=== PATIENT | female | born 2005 | race Two or more races ===

== ENCOUNTER 2024-10-03 20:03 | Emergency (ER) | payer OTHER ==
[~2024-10-03] VITALS: Ht 160 cm; Wt 112.0 kg
--- NOTE | 2024-10-03 20:32 | ED.PDOC ---
History of Present Illness HPI Comments 19-year-old female comes to ER for chest pains. Patient denies any medical problems. States his last night she has been having dry hacking cough associated with substernal chest pains, tight, 5/10 intensity, worsens with coughing. Noted also to have nausea and generalized body malaise. Chief Complaint: Chest Pain Time Seen by MD: 20:32 Reviewed Notes: Nurses Notes Allergies: Coded Allergies: No Known Drug Allergy (Verified Allergy, Unknown, 10/03/24) Information Source: Patient Mode of Arrival: Ambulatory Severity: Moderate Timing: Hours Duration: Intermittent Prehospital treatment: None Past Medical History PAST MEDICAL HISTORY: Denies Surgical History: Denies all surgeries SHELF STOCKER History: Denies all SHELF STOCKER Hx Family History Family History: Reviewed,noncontributory to illness Social History Smoker: Non-Smoker Alcohol: Denies ETOH Use Drugs: Denies Drug Use Lives In: Home Constitutional: reports: malaise; denies: chills, diaphoresis, fatigue, fever, sweats, weakness, others EENTM: denies: blurred vision, double vision, ear bleeding, ear discharge, ear drainage, ear pain, ear ringing, eye pain, eye redness, hearing loss, mouth pain, mouth swelling, nasal discharge, nose bleeding, nose congestion, nose pain, photophobia, tearing, throat pain, throat swelling, voice changes, others Respiratory: reports: cough; denies: hemoptysis, orthopnea, SOB at rest, shortness of breath, SOB with excertion, stridor, wheezing, others Cardiovascular: reports: chest pain; denies: dizzy spells, diaphoresis, Dyspnea on exertion, edema, irregular heart beat, left arm pain, lightheadedness, pal pitations, PND, syncope, others Gastrointestinal: reports: nausea; denies: abdomen distended, abdominal pain, blood streaked bowels, constipated, diarrhea, dysphagia, difficulty swallowing, hematemesis, melena, poor appetite, poor fluid intake, rectal bleeding, rectal pain, vomiting, others Genitourinary: denies: abnormal vagina bleeding, burning, dyspareunia, dysuria, flank pain, frequency, hematuria, incontinence, pain, , vagina disc harge, urgency, others Neurological: denies: dizziness, fainting, headache, left sided numbness, left sided weakness, numbness, paresthesia, pre-existing deficit, right sided numbness, right sided weakness, seizure, speech problems, tingling, tremors, weakness, others Musculoskeletal: denies: back pain, gout, joint pain, joint swelling, muscle pain, muscle stiffness, neck pain, others Integumetry: denies: bruises, change in color, change in hair/nails, dryness, laceration, lesions, lumps, rash, wounds, others Allergic/Immunocompromised: denies: Difficulty Healing, Frequent Infections, Hives, Itching, others Hematologic/Lymphatic: denies: anemia, blood clots, easy bleeding, easy bruising, swollen glands, others Endocrine: denies: excessive hunger, excessive sweating, excessive thirst, excessive urination, flushing, intolerance to cold, intolerance to heat, unexplained weight gain, unexplained weight loss, others Psychiatric: denies: anxiety, bipolar disorder, depression, hopeless, panic disorder, schizophrenia, sleepless, suicidal, others Physical Exam General Appearance: Mild Distress, Normal HEENT: Normal ENT Inspection, Pharynx Normal, TMs Normal Neck: Full Range of Motion, Non-Tender, Normal, Normal Inspection Respiratory: Chest Non-Tender, Lungs Clear, No Accessory Muscle Use, No Respiratory Distress, Normal Breath Sounds Cardiovascular: No Edema, No JVD, No Murmur, No Gallop, Normal Peripheral Pulses, Regular Rate/Rhythm Breast Exam: Deferred Gastrointestinal: No Organomegaly, Non Tender, No Pulsatile Mass, Normal Bowel Sounds, Soft Genitalia: Deferred Pelvic: Deferred Rectal: Deferred Extremities: No calf tenderness, Normal capillary refill, Normal inspection, Normal range of motion, Non-tender, No pedal edema Musculoskeletal : Apperance: Normal Neurologic: Alert, beauty culturist II-XII nml as Tested, No Motor Deficits, Normal Affect, Normal Mood, No Sensory Deficits Cerebellar Function: Normal Reflexes: Normal Skin: Dry, Normal Color, Warm Lymphatic: No Adenopathy Was a procedure done? Was a procedure done?: No EKG EKG : Pulse Rate (adult): 132 [place]: LAD Cardiac Rhythm: ST Differential Dx Considerations may include: Anemia, electrolyte imbalance,, upper respiratory infection, pneumonia, coronary artery disease, AL, anxiety X-Ray, Labs, Meds, VS Vital Signs Date Time Temp Pulse Resp B/P (MAP) Pulse Ox O2 Delivery O2 Flow Rate FiO2 12/13/24 22:19 98.9 10/03/24 21:24 99.8 128 16 126/85 (99) 98 99.8 10/03/24 21:24 16 98 Room Air* 0 21 10/03/24 21:23 99.8 10/03/24 20:32 132 10/03/24 20:28 99.9 125 22 135/84 (101) 99 10/03/24 20:13 132 Lab Test 10/03/24 21:25 10/03/24 21:05 10/03/24 20:19 10/03/24 00:00 Range/Units Influenza Type A Antigen Positive Negative Influenza Type B Antigen Negative Negative Respiratory Syncytial Virus Antigen Negative Negative SARS-CoV-2 Antigen (Rapid) Negative NEGATIVE Troponin I High Sensitivity < 3 L < 3 L </=34 ng/L White Blood Count 6.3 4.4-10.8 10^3/uL Red Blood Count 4.75 4.0-5.20 10^6/uL Hemoglobin 14.1 12.2-16.2 g/dL Hematocrit 42.1 36.0-46.0 % Mean Corpuscular Volume 88.8 80.0-100.0 fL Mean Corpuscular Hemoglobin 29.7 28.0-32.0 pg Mean Corpuscular Hemoglobin Concent 33.5 32.0-36.0 g/dL Red Cell Distribution Width 13.8 11.8-14.3 % Platelet Count 276 140-450 10^3/uL Mean Platelet Volume 8.2 6.9-10.8 fL Neutrophils (%) (Auto) 59.8 37.0-80.0 % Lymphocytes (%) (Auto) 25.1 10.0-50.0 % Monocytes (%) (Auto) 11.1 0.0-12.0 % Eosinophils (%) (Auto) 3.4 0.0-7.0 % Basophils (%) (Auto) 0.6 0.0-2.0 % Neutrophils # (Auto) 3.8 1.6-8.6 10 ^3/uL Lymphocytes # (Auto) 1.6 0.4-5.4 10 ^3/uL Monocytes # (Auto) 0.7 0-1.3 10 ^3/uL Eosinophils # (Auto) 0.2 0-0.8 10 ^3/uL Basophils # (Auto) 0 0-0.2 10 ^3/uL Nucleated Red Blood Cells 0.1 % Sodium Level 140 136-145 mmol/L Potassium Level 4.1 3.5-5.1 mmol/L Chloride Level 104 98-107 mmol/L Carbon Dioxide Level 28 20-31 mmol/L Anion Gap 8 5-15 Blood Urea Nitrogen 8 L 9-23 mg/dL Creatinine 0.96 0.550-1.02 mg/dL Glomerular Filtration Rate Calc 87 >90 mL/min BUN/Creatinine Ratio 8.3 L 10.0-20.0 Serum Glucose 84 74-106 mg/dL Calcium Level 10.1 8.7-10.4 mg/dL Total Bilirubin 0.2 0.2-1.0 mg/dL Aspartate Amino Transferase (AST) 22 13-40 U/L Alanine Aminotransferase (ALT) 32 7-40 U/L Alkaline Phosphatase 102 46-116 U/L Total Protein 7.7 5.7-8.2 g/dL Albumin 4.4 3.2-4.8 g/dL Urine Color Light-yellow Yellow Urine Clarity Clear Clear Urine pH 6.5 5.0-9.0 Urine Specific [place] 1.012 1.001-1.035 Urine Protein Negative Negative Urine Ketones Negative Negative Urine Blood Trace H Negative /uL Urine Nitrite Negative Negative Urine Bilirubin Negative Negative Urine Urobilinogen Normal Negative mg/dL Urine Leukocyte Esterase Negative Negative /uL Urine RBC 8 0 - 4 /hpf Urine WBC 2 0 - 5 /hpf Urine Squamous Epithelial Cells Few <5 /hpf Urine Bacteria Few H None Seen /hpf Urine Glucose Normal Normal mg/dL Current Medications Medications (Trade) Dose Ordered Sig/Karey Route Start Time Stop Time Status Last Admin Sodium Chloride 1,000 ml @ 1,000 mls/hr Q1H ONCE IV 10/03/24 20:30 10/03/24 21:29 DC 10/03/24 21:20 Ondansetron HCl (Zofran) 4 mg ONCE ONCE IV 10/03/24 20:30 10/03/24 20:31 DC 10/03/24 21:24 Azithromycin 250 ml @ 125 mls/hr ONCE ONCE IV 10/03/24 20:30 10/03/24 22:29 DC 10/03/24 21:15 Acetaminophen (Tylenol Tablet) 650 mg ONCE ONCE PO 10/03/24 20:30 10/03/24 20:31 DC 10/03/24 21:23 Ketorolac Tromethamine (Toradol Injection) 30 mg ONCE ONCE IV 10/03/24 20:30 10/03/24 20:31 DC 10/03/24 21:24 CHEST RADIOGRAPH FINDINGS: Lines and Tubes: None Lungs: Clear Pleura: No effusion. No pneumothorax. Cardiomediastinal contours: Unremarkable Bones: Unremarkable IMPRESSION: No acute disease. Influenza a is positive influenza B and RSV and COVID are negative. Chest troponin is three. Second troponin is three. EKG shows sinus tach. The patient was given azithromycin with Tylenol Toradol and IV fluids. The patient will be discharged to follow up with the primary care physician and prescribed azithromycin. Time of 1ST Reevaluation: 20:29 Reevaluation 1ST: Unchanged Patient Education/Counseling: Diagnosis, Treatment Family Education/Counseling: No Family Present Departure 1 Departure Time of Disposition: 22:36 Impression: Primary Impression: Influenza A Disposition: 01 HOME / SELF CARE / HOMELESS Condition: Stable Additional Instructions: Reassessed patient, vital signs stable. Denies any new symptoms. Patient is able to tolerate PO and ambulate/be mobile at their baseline without concern. Risks and benefits of all medications given or prescribed, if any, discussed. All lab work, imaging and diagnostic studies were reviewed by me. The patient was counseled extensively on my clinical impression, diagnosis, expected course of the disease, and plan, including their follow-up care. Will discharge patient. Patient instructed to follow up with Primary Care Physician within 24-48 hours. Strict return precautions given for further exacerbation of symptoms or for new symptoms. The patient was given the opportunity to ask questions and all questions were answered by myself and the nursing/tech staff. Patient is in agreement with the care plan. The patient verbally expressed understanding of the discharge instructions, including the reasons to return to the Emergency Department. e-Prescriptions Azithromycin (Zithromax Z-Rodger) 250 Mg Tab 250 MG PO DAILY for 4 Days, #4 TAB Prov: COREY RAMSEY MD 10/03/24 Discharged With: Self Critical Care Note Critical Care Time?: No Stability Stability form required: No Heart Score Heart Score: Heart Score Response (Comments) Value History N/A 0 EKG N/A 0 Age N/A 0 Risk Factors N/A 0 Troponin N/A 0 Total 0 I personally scribed for COREY RAMSEY MD ([email or web address]) on 10/03/24 at 20:32. Electronically submitted by Manan Whitfield ([email or web address]). I personally scribed for COREY RAMSEY MD ([email or web address]) on 10/03/24 at 21:08. Electronically submitted by Manan Whitfield ([email or web address]). COREY RAMSEY MD Oct 03, 2024 20:32
[2024-10-03 20:44] LABS: Basophils # (auto) 0 10 ^3/uL (0-0.2); Basophils % (auto) 0.6 % (0.0-2.0); Eosinophils # (auto) 0.2 10 ^3/uL (0-0.8); Eosinophils % (auto) 3.4 % (0.0-7.0); Hematocrit 42.1 % (36.0-46.0); Hemoglobin 14.1 g/dL (12.2-16.2); Lymphocytes # (auto) 1.6 10 ^3/uL (0.4-5.4); Lymphocytes % (auto) 25.1 % (10.0-50.0); Mean Corpuscular Hemoglobin 29.7 pg (28.0-32.0); Mean Corpuscular Hgb Conc. 33.5 g/dL (32.0-36.0); Mean Corpuscular Volume 88.8 fL (80.0-100.0); Monocytes # (auto) 0.7 10 ^3/uL (0-1.3); Monocytes % (auto) 11.1 % (0.0-12.0); Neutrophils # (auto) 3.8 10 ^3/uL (1.6-8.6); Neutrophils % (auto) 59.8 % (37.0-80.0); Nucleated Red Blood Cells % 0.1 %; Platelet Count (auto) 276 10^3/uL (140-450); Red Blood Cells 4.75 10^6/uL (4.0-5.20); Red Cell Distribution Width 13.8 % (11.8-14.3); White Blood Cell 6.3 10^3/uL (4.4-10.8)
--- NOTE | 2024-10-03 20:51 | DVH ---
CHEST RADIOGRAPH Indication: SOB Technique: Single frontal view of the chest was obtained COMPARISON: None FINDINGS: Lines and Tubes: None Lungs: Clear Pleura: No effusion. No pneumothorax. Cardiomediastinal contours: Unremarkable Bones: Unremarkable IMPRESSION: No acute disease.
[2024-10-03 21:06] LABS: Alanine Aminotransferase 32 U/L (7-40); Albumin 4.4 g/dL (3.2-4.8); Alkaline Phosphatase 102 U/L (46-116); Anion Gap 8 (5-15); Aspartate Aminotransferase 22 U/L (13-40); BUN/Creatinine Ratio 8.3 (10.0-20.0); Calcium 10.1 mg/dL (8.7-10.4); Carbon Dioxide 28 mmol/L (20-31); Chloride 104 mmol/L (98-107); Glucose 84 mg/dL (74-106); Potassium 4.1 mmol/L (3.5-5.1); Sodium 140 mmol/L (136-145); Total Protein 7.7 g/dL (5.7-8.2)
[2024-10-03 21:07] LABS: Bilirubin, Total 0.2 mg/dL (0.2-1.0); Blood Urea Nitrogen 8 mg/dL (9-23)
[2024-10-03] MEDS: AZITHROMYCIN 500MG/ 250ML 250 ML IV ONE (21:15)
[2024-10-03] MEDS: SODIUM CHLORIDE 0.9% 1,000 ML IV ONE (21:20)
[2024-10-03] MEDS: ACETAMINOPHEN 325 MG TAB PO ONE (21:23)
[2024-10-03 21:24] VITALS: RESP 16; O2SAT 98
[2024-10-03] MEDS: KETOROLAC TROMETH 30 MG/ML 1ML VIAL IV ONE (21:24)
[2024-10-03] MEDS: ONDANSETRON HCL 4 MG/2 ML VIAL IV ONE (21:24)
[2024-10-03 21:39] LABS: Urine Bacteria FEW /hpf (None Seen); Urine Blood TRACE /uL (Negative); Urine Clarity Clear (Clear); Urine Color Light-Yellow (Yellow); Urine Protein, UAD Negative (Negative); Urine Specific Gravity 1.012 (1.001-1.035); Urine Urobilinogen Normal (Negative); Urine WBC 2 /hpf (0 - 5); Urine pH 6.5 (5.0-9.0)
[2024-10-03 22:22] LABS: COVID19 ANTIGEN SOFIA FIA NEGATIVE (NEGATIVE); Respiratory Syncytial Virus Ag Negative (Negative)
[2024-10-03 22:23] LABS: Rapid Influenza B Negative (Negative)
[2024-10-03 22:26] LABS: Rapid Influenza A Positive (Negative)
[2024-10-03] MEDS ORDERED: AZITTAB PO (22:37)
[2024-10-03 23:53] VITALS: BP 127/72; PULSE 95; RESP 19; TEMP 98.7; O2SAT 97
--- NOTE | 2024-10-04 06:53 | ECG ---
[facility] [place] Test Date: 2024-10-03 Test Time: 20:13:19 Pat Name: ASHLEY CORDON Department: ER Room: Gender: F Warehouse Receiver: NARCISA : 2005 Requested By: COREY RAMSEY Order Number: [id number] Reading MD: Measurements Intervals Center Rate: 132 P: 70 ND: 139 QRS: -15 QRSD: 88 T: 5 QT: 304 QTc: 451 Interpretive Statements Sinus tachycardia Borderline left axis deviation Please click the below link to view image of tracing.
== END 2024-10-03 23:55 | disposition home or self-care (01) ==
LOC: ER 20:12
DX: J10.1 Influenza due to other identified influenza virus with other respiratory manifestations (principal); M79.18 Myalgia, other site; Z20.822 Contact with and (suspected) exposure to COVID-19
CPT/HCPCS: 36415; 71045; 80053; 81001; 84484; 85025; 87426; 87804; 87807; 93005; 96365; 96366; 96375; 99285; J0456; J1885; J2405; J7030